=== PATIENT | male | born 1975 | race African-American/Black ===

== ENCOUNTER 2019-08-25 04:16 | Emergency (ER) | payer OTHER ==
[~2019-08-25] VITALS: Ht 185.4 cm; Wt 229.1 kg
[~2019-08-25 04:16] MED LIST: BACTRIM DS TAB1 EACH PO; CIPROFLOXACIN500 M1 PO; CLEOCIN HCL300 MG PO; COMPAZINE10 MG PO; FLAGYL500 MG PO; IBUPROFEN 800800 M1 PO; INDOMETHACIN 2525 MG PO; INDOMETHACIN SR75 MG PO; NOHOMEMEDICATIONS; NORCO 5-325 TA1 EACH PO; VICODIN 5-5001 EACH PO
[2019-08-25] MEDS ORDERED: INDOMETHACIN 2525 MG PO (04:48)
[2019-08-25] MEDS ORDERED: NORCO 5-325 TA1 EAC1 PO (04:48)
[2019-08-25] MEDS ORDERED: MITIGARE0.6 MG PO (04:48)
[2019-08-25 05:48] VITALS: BP 164/101
== END 2019-08-25 05:49 | disposition home or self-care (01) ==
LOC: ER 04:16
DX: M10.9 Gout, unspecified (principal); Z88.0 Allergy status to penicillin